=== PATIENT | female | born 1950 ===

== ENCOUNTER 2022-02-03 11:23 | Emergency (ER) ==
[2022-02-03] MEDS ORDERED: methylPREDNISolone Sodium Succinate 125 MG/2 ML SDV IVPUSH ONE (11:55)
[2022-02-03] MEDS ORDERED: Albuterol/Ipratropium 3.0-0.5 MG/3 ML Neb Soln INH ONE (12:00)
[2022-02-03] MEDS ORDERED: Iopamidol 755 Mg/ML 100 ML Bottle IV ONE (17:16)
== END 2022-02-03 14:07 | disposition home or self-care (01) ==
LOC: MW.ED 11:23
DX: J81.1 Chronic pulmonary edema (principal); Z86.16 Personal history of COVID-19
CPT/HCPCS: 71046; 71275; 93005; 96374; 99285; J2930; Q9967; J7620-GY